=== PATIENT | female | born 1990 | race American Indian/Alaskan Native ===

== ENCOUNTER 2021-12-31 10:46 | Emergency (ER) | payer OTHER ==
[2021-12-31] MEDS ORDERED: ACETAMINOPHEN W/CODEINE 300-30 MG TAB PO ONE (16:06)
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
[2021-12-31 17:51] VITALS: BP 176/100
== END 2021-12-31 17:41 | disposition home or self-care (01) ==
LOC: ED 10:46
DX: S02.2XXA Fracture of nasal bones, initial encounter for closed fracture (principal); Y08.89XA Assault by other specified means, initial encounter; Y93.89 Activity, other specified; Y92.89 Other specified places as the place of occurrence of the external cause; Y99.8 Other external cause status
CPT/HCPCS: 70486; 99283